=== PATIENT | female | born 1975 | race Two or more races ===

== ENCOUNTER 2019-02-19 11:49 | Emergency (ER) | payer SELFPAY ==
[~2019-02-19] VITALS: Ht 157.5 cm; Wt 80.0 kg
[2019-02-19 11:57] VITALS: BP 128/82
[2019-02-19] MEDS ORDERED: DIAZEPAM 5 MG TABLET PO ONE (12:45)
[2019-02-19] MEDS ORDERED: KETOROLAC 60MG/2ML VIAL IM ONE (12:45)
== END 2019-02-19 13:49 | disposition home or self-care (01) ==
LOC: ER 11:49
DX: M54.5 Low back pain (principal); V49.49XA Driver injured in collision with other motor vehicles in traffic accident, initial encounter; Y93.89 Activity, other specified; Y92.89 Other specified places as the place of occurrence of the external cause; Y99.8 Other external cause status
CPT/HCPCS: 96372; 99283; J1885